=== PATIENT | male | born 1985 | race Caucasian/White ===

== ENCOUNTER 2021-06-08 01:44 | Emergency (ER) | payer OTHER ==
[2021-06-08 02:11] VITALS: BP 109/74; PULSE 109; TEMP 98.7; BMI 30.9
[2021-06-08] MEDS ORDERED: SODIUM CHLORIDE 0.9% 500 ML INFUS.BAG IV ONE (02:19)
[2021-06-08 03:03] LABS: BASO % 0.5 % (0-2.0); EOS % 0.1 % (0-4.5); HEMATOCRIT 42.2 % (35.4-49); HEMOGLOBIN 14.5 GM/dL (11.7-16.9); LYMPH % 8.1 % (8-40); MCH 30.8 pg (25.7-33.7); MCHC 34.4 g/dl (32.0-35.9); MEAN CELL VOLUME 89.5 fl (80-96); MEAN PLT VOLUME 7.4 fl (7.5-11.1); NEUT % 83.3 % (42.8-82.8); PLATELET COUNT 295 10^3/uL (134-434); RBC 4.72 M/mm3 (4.00-5.60); RDW 12.6 % (11.9-15.9); WHITE BLOOD COUNT 11.5 K/mm3 (4.0-10.0)
[2021-06-08 03:12] LABS: INR 1.34 (0.83-1.09); PROTHROMBIN TIME (PATIENT) 15.4 SEC (9.7-13.0)
[2021-06-08 03:26] LABS: ALBUMIN 4.1 g/dl (3.4-5.0); BLOOD UREA NITROGEN 10.5 mg/dL (7-18); CALCIUM 9.1 mg/dL (8.5-10.1); MAGNESIUM 2.2 mg/dL (1.8-2.4)
[2021-06-08 03:28] LABS: CREATININE 0.9 mg/dL (0.55-1.3)
[2021-06-08 03:31] LABS: BILIRUBIN,TOTAL 0.5 mg/dL (0.2-1); TOT PROT 7.8 g/dl (6.4-8.2)
[2021-06-08] MEDS ORDERED: MAGNESIUM SULF 50% (8.12 MEQ/2 ML-1 GM VIAL) IVPB ONE (03:33)
[2021-06-08] MEDS ORDERED: POTASSIUM CHLORIDE TABS 20 MEQ TABLET.ER (FP) PO ONE ×2 (03:34→03:54)
[2021-06-08] MEDS ORDERED: MAGNESIUM SULFATE IN WATER 2 GM/50 ML IVPB IVPB ONE (03:55)
== END 2021-06-08 05:04 ==
LOC: JER 01:44
PROC: 3E033GC Introduction of Other Therapeutic Substance into Peripheral Vein, Percutaneous Approach (ICD-10-PCS; principal; 2021-06-08)
DX: R19.7 Diarrhea, unspecified (principal)
CPT/HCPCS: 36415; 80053; 83735; 85025; 85610; 99284-25; C9803-CS; U0003; U0005

== ENCOUNTER 2021-06-08 20:02 | Emergency (ER) | payer OTHER ==
[2021-06-08 20:14] VITALS: TEMP 99.2; BMI 30.9
[2021-06-08] MEDS ORDERED: ONDANSETRON 4 MG/2 ML VIAL IVPUSH ONE (20:56)
[2021-06-08] MEDS ORDERED: SODIUM CHLORIDE 0.9% 500 ML INFUS.BAG IV ONE (20:56)
[2021-06-08] MEDS ORDERED: ONDANSETRON 4 MG/2 ML VIAL ONE (21:06)
[2021-06-08 22:26] LABS: EPI CELLS 1 /uL (0-25.1); HYALINE CASTS 0 /uL (0-3.1); PH,URINE 6.5 (5.0-8.0); URINE APPEARANCE CLEAR; URINE BACTERIA 2 /uL (0-1359); URINE BILIRUBIN NEGATIVE (NEGATIVE); URINE COLOR YELLOW; URINE GLUCOSE (UA) NEGATIVE (NEGATIVE); URINE KETONE TRACE (NEGATIVE); URINE LEUK ESTERASE NEGATIVE (NEGATIVE); URINE NITRITE NEGATIVE (NEGATIVE); URINE PROTEIN NEGATIVE (NEGATIVE); URINE RBC 25 /uL (0-23.9); URINE UROBILINOGEN 0.2 mg/dL (0.2-1.0); URINE WBC 3 /uL (0-25.8)
[2021-06-08 22:54] LABS: BASO % 0.4 % (0-2.0); EOS % 0.1 % (0-4.5); HEMATOCRIT 37.8 % (35.4-49); MCH 30.7 pg (25.7-33.7); MCHC 34.5 g/dl (32.0-35.9); MEAN CELL VOLUME 89.1 fl (80-96); MEAN PLT VOLUME 7.2 fl (7.5-11.1); MONO % 11.1 % (3.8-10.2); NEUT % 77.4 % (42.8-82.8); PLATELET COUNT 245 10^3/uL (134-434); RBC 4.25 M/mm3 (4.00-5.60); RDW 12.6 % (11.9-15.9); WHITE BLOOD COUNT 8.6 K/mm3 (4.0-10.0)
[2021-06-08 22:57] LABS: BLOOD UREA NITROGEN 6.6 mg/dL (7-18); CALCIUM 8.6 mg/dL (8.5-10.1); CHLORIDE 104 mmol/L (98-107); CO2 21 mmol/L (21-32); CREATININE 0.7 mg/dL (0.55-1.3); GLUCOSE,RANDOM 118 mg/dL (74-106); SODIUM 129 mmol/L (136-145); TOT PROT 8.4 g/dl (6.4-8.2)
[2021-06-08 23:07] LABS: ALBUMIN 3.2 g/dl (3.4-5.0); ALK PHOS 116 U/L (45-117); ANION GAP 4 MMOL/L (8-16); SGOT/AST 163 U/L (15-37)
[2021-06-09 00:37] LABS: BLOOD UREA NITROGEN 5.6 mg/dL (7-18); CALCIUM 7.9 mg/dL (8.5-10.1)
[2021-06-09 00:41] LABS: CREATININE 0.6 mg/dL (0.55-1.3)
[2021-06-09 02:00] VITALS: BP 111/72; PULSE 110
== END 2021-06-09 02:01 | disposition home or self-care (01) ==
LOC: JER 20:02
PROC: 3E033GC Introduction of Other Therapeutic Substance into Peripheral Vein, Percutaneous Approach (ICD-10-PCS; principal; 2021-06-08)
DX: R11.2 Nausea with vomiting, unspecified (principal); R19.7 Diarrhea, unspecified
CPT/HCPCS: 36415; 80048; 80053; 81003; 85025; 87086; 99284-25

== ENCOUNTER 2022-07-30 11:11 | Emergency (ER) | payer OTHER ==
[2022-07-30 11:28] VITALS: BP 114/68; PULSE 88; RESP 18; TEMP 97.6; BMI 30.9
[2022-07-30] MEDS ORDERED: KETOROLAC TROMETHAMINE 30 MG/1 ML VIAL IM ONE (13:28)
[2022-07-30] MEDS ORDERED: METHOCARBAMOL 500 MG TABLET PO ONE (13:28)
[2022-07-30] MEDS ORDERED: LIDOCAINE 5% TOPICAL PATCH TP ONE (13:28)
[2022-07-30] MEDS ORDERED: KETOROLAC TROMETHAMINE 30 MG/1 ML VIAL ONE (13:32)
[2022-07-30] MEDS ORDERED: LIDOCAINE 5% TOPICAL PATCH ONE (13:32)
[2022-07-30] MEDS ORDERED: METHOCARBAMOL 500 MG TABLET ONE (13:32)
[2022-07-30] MEDS ORDERED: LIDOCAINE PATCH REMOVAL MC SCH (22:00)
== END 2022-07-30 14:55 | disposition home or self-care (01) ==
LOC: JERFT 11:11
PROC: 3E0233Z Introduction of Anti-inflammatory into Muscle, Percutaneous Approach (ICD-10-PCS; principal; 2022-07-30)
DX: M25.512 Pain in left shoulder (principal); M54.2 Cervicalgia; M79.602 Pain in left arm; M62.838 Other muscle spasm; X50.0XXA Overexertion from strenuous movement or load, initial encounter
CPT/HCPCS: 99284-25

== ENCOUNTER 2024-01-06 10:28 | Emergency (ER) | payer OTHER ==
[2024-01-06 10:43] VITALS: BP 115/79; PULSE 88; RESP 18; TEMP 97.7; BMI 24.0
== END 2024-01-06 14:45 | disposition home or self-care (01) ==
LOC: JER 10:28
DX: F22 Delusional disorders (principal); F41.9 Anxiety disorder, unspecified
CPT/HCPCS: 99282-25